=== PATIENT | male | born 1955 | race Caucasian/White ===

== ENCOUNTER → 2024-06-25 09:35 | Outpatient (REF) | payer OTHER, MEDICARE, SELFPAY | LOC: HWRCS 09:35 | PROVIDERS: ATTENDING PHYSICIAN Family Medicine | DX: M25.473 Effusion, unspecified ankle (principal); Z00.00 Encounter for general adult medical examination without abnormal findings | CPT/HCPCS: 71046; 93306 ==

== ENCOUNTER 2024-07-16 11:07 | Emergency (ER) | payer OTHER, MEDICARE, SELFPAY ==
[2024-07-16 11:12] VITALS: BP 167/87
--- NOTE | 2024-07-16 12:01 | ED.GENMED ---
History of Present Illness
<Navid Acosta Jr., PA-C - Last Filed: 07/16/24 16:33>
General
Chief Complaint: Fall
Source: patient
Exam Limitations: none
Time Seen by Provider: 07/16/24 11:23
Nursing documentation reviewed up to this point in time: agreed with
History of Present Illness
History of Present Illness:
69-year-old male presenting to the emergency department today with concerns of a trip and fall a day and a half ago hitting his head and his neck unsure if he lost consciousness. Has some mild pain to the right hip and right shoulder but has been
able to ambulate and move his shoulder well. Patient is taking Coumadin.
Past History
<Navid Acosta Jr., PA-C - Last Filed: 07/16/24 16:33>
Past History
ED Past Medical History: Cancer (Liver CA), CVA, GERD, HTN, Hypercholesterolemia, NIDDM, Other (Factor V Leiden deficiency, antiphospholipid syndrome) and Other (Stage 3 Kidney disease)
ED Past Surgical History: Orthopedic (Left knee replacement) and Other (Liver transplant, small bowel transplant)
Social History
Tobacco: Former smoker
Alcohol: None
Drug: None
Personal:
Living: with family
Employment: Disabled
Family History
Family History: Hypertension; Negative Early CAD
Review of Systems
<Navid Acosta Jr., PA-C - Last Filed: 07/16/24 16:33>
Review of Systems
Allergies reviewed?: Yes
All Other Systems: ROS reviewed and negative except as documented in HPI and ROS
Phy Exam
<JOLANTA Kapadia Jr. Last Filed: 07/16/24 16:33>
Physical Exam
Physical Exam:
GENERAL: Alert , in no apparent distress
EYE: pupils equal and reactive
NECK: Reproducible pain to the posterior neck and midline to the mid thoracic region supple, no significant adenopathy.
ENT: o/p clr, mmm.
CARDIAC: Regular rate and rhythm .
LUNGS: Clear breath sounds bilaterally, no acute respiratory distress, no wheezes/rales/rhonchi
ABDOMEN: Soft, without focal tenderness, no r/g, no cvat
NEUROLOGICAL: Alert and oriented, no focal neuro deficits
SKIN: Warm and dry, skin intact.
MUSCULOSKELETAL: No edema, well perfused.
PSYCH: Normal and appropriate interaction.
Course
<Navid Acosta Jr., JOLANTA - Last Filed: 07/16/24 16:33>
Orders/Labs/Results
Orders:
Orders
07/16/24 11:48
CT Cervical Spine W/o Iv Contr Urgent
Comment:
Reason For Exam: fall neck
CT Head W/o Iv Contrast Urgent
Comment:
Reason For Exam: fal lhit head
07/16/24 11:57
PT/INR [Prothrombin Time] Urgent
07/16/24 14:06
CT Angio Neck W/Wo Iv Contrast [CT Neck Angio W/wo Iv Contrast] Urgent
Comment:
Reason For Exam: C1 fx, fall 2 days ago
07/16/24 14:24
CBC/With Diff [Complete Blood Count/With Diff] Urgent
CMP [Comprehensive Metabolic Panel] Urgent
07/16/24 14:33
HYDROmorphone [Dilaudid] 1 mg IV NOW STA
07/16/24 15:05
0.9% Sodium Chloride 500 ml [Nss] 500 ml IV BOLUS
Abnormal Lab Results
07/16/24 07/16/24
11:57 14:24
RBC 3.88 L 10^6/uL
(4.70-6.10)
Hgb 11.9 L g/dL
(13.0-18.0)
Hct 35.6 L %
(39.0-52.0)
Absolute Monos (auto) 0.7 H 10^3/uL
(0.1-0.6)
Monocytes % 10.8 H %
(1.7-9.3)
PT 28.2 H Sec
(11.4-14.6)
Chloride 110 H mmol/L
(98-107)
BUN 26 H mg/dl
(9-20)
Creatinine 2.4 H mg/dL
(0.7-1.3)
Glucose 155 H mg/dl
(70-99)
07/16/24 14:24
07/16/24 14:24
Vital Signs
Initial and Last Documented VS:
Initial Vital Signs
Temp Pulse Resp BP Pulse Ox
98.4 F 81 18 167/87 98
07/16/24 11:12 07/16/24 11:12 07/16/24 11:12 07/16/24 11:12 07/16/24 11:12
Last Documented Vital Signs
Temp Pulse Resp BP Pulse Ox
97.5 F 76 13 138/72 98
07/16/24 14:28 07/16/24 15:01 07/16/24 15:01 07/16/24 15:01 07/16/24 14:45
<Dewey Granados MD - Last Filed: 07/16/24 15:08>
Orders/Labs/Results
Orders:
Orders
07/16/24 11:48
CT Cervical Spine W/o Iv Contr Urgent
Comment:
Reason For Exam: fall neck
CT Head W/o Iv Contrast Urgent
Comment:
Reason For Exam: fal lhit head
07/16/24 11:57
PT/INR [Prothrombin Time] Urgent
07/16/24 14:06
CT Angio Neck W/Wo Iv Contrast [CT Neck Angio W/wo Iv Contrast] Urgent
Comment:
Reason For Exam: C1 fx, fall 2 days ago
07/16/24 14:24
CBC/With Diff [Complete Blood Count/With Diff] Urgent
CMP [Comprehensive Metabolic Panel] Urgent
07/16/24 14:33
HYDROmorphone [Dilaudid] 1 mg IV NOW STA
07/16/24 15:05
0.9% Sodium Chloride 500 ml [Nss] 500 ml IV BOLUS
Abnormal Lab Results
07/16/24 07/16/24
11:57 14:24
RBC 3.88 L 10^6/uL
(4.70-6.10)
Hgb 11.9 L g/dL
(13.0-18.0)
Hct 35.6 L %
(39.0-52.0)
Absolute Monos (auto) 0.7 H 10^3/uL
(0.1-0.6)
Monocytes % 10.8 H %
(1.7-9.3)
PT 28.2 H Sec
(11.4-14.6)
Chloride 110 H mmol/L
(98-107)
BUN 26 H mg/dl
(9-20)
Creatinine 2.4 H mg/dL
(0.7-1.3)
Glucose 155 H mg/dl
(70-99)
07/16/24 14:24
07/16/24 14:24
Vital Signs
Initial and Last Documented VS:
Initial Vital Signs
Temp Pulse Resp BP Pulse Ox
98.4 F 81 18 167/87 98
07/16/24 11:12 07/16/24 11:12 07/16/24 11:12 07/16/24 11:12 07/16/24 11:12
Last Documented Vital Signs
Temp Pulse Resp BP Pulse Ox
97.5 F 76 13 138/72 98
07/16/24 14:28 07/16/24 15:01 07/16/24 15:01 07/16/24 15:01 07/16/24 14:45
<Navid Acosta Jr., PA-C - Last Filed: 07/16/24 16:33>
MDM/Problems Addressed
MDM/Problems Addressed:
69-year-old male presenting to the emergency department today with concerns of trip and fall down a half ago. Claims that he tripped over a small step 0 to break his fall to some extent with his arm but did hit his head and his neck. Ongoing
discomfort of his head and neck since. Patient is on Coumadin. On arrival here blood pressure is elevated otherwise vital signs are normal. Blood pressure did improve without specific treatment. INR in therapeutic range. CT head without
emergent finding CT spine shows fracture to C1 and dens. Case immediately discussed with [facility] trauma surgery as well as neurosurgery. They excepted transfer the patient. No neurologic symptoms while here.
<Navid Acosta Jr., PA-C - Last Filed: 07/16/24 16:33>
*Critical Care Note
Total Time (30-74mins, 75-104mins- exclusive of procedures): Not Applicable
ED Attending Note
<Navid Acosta Jr., PA-C - Last Filed: 07/16/24 16:33>
-
Portions of this chart may have been created with voice recognition software.� Occasional wrong word or��sound alike� substitutions may have occurred due to the inherent limitations of voice recognition software.
<Dewey Granados MD - Last Filed: 07/16/24 15:08>
ED Attending Note
Patient seen and examined by attending physician: Yes
ED Attending Note:
I have seen and evaluated the patient with a [id number] encounter. I have spoken to the advance practicer provider and involved in the medical history, the physical exam, medical decision making.
Evaluation and management service: agree unless noted differently below.
Results interpretation: agree unless noted differently below.
Focused HPI: 69-year-old male with history as documented presents to the ER for evaluation after fall. He says he was going into the men's room at a restaurant and tripped on a lip in the floor; he fell forward and hit his head on the wall and
hyperextended his neck. He says he has had pain in his neck as well as his right hip since. Denies any headache. Denies any nausea. Denies any other injuries. He is on Coumadin.
Physical exam: Awake and alert not in distress. Head atraumatic. Cervical collar in place. No signs of trauma to the extremities. Motor and sensory intact in all extremities. Good range of motion right hip with minimal pain.
Medical Decision Makin-year-old male presents after trip and fall with head strike. Complaining of neck pain, right hip pain. CT head negative for any acute pathology, CT cervical spine shows C1 and C2 fracture. Will send for a CTA to rule
out vascular injury with high cervical fracture. Patient is in a cervical collar cleared Case discussed with [facility] for trauma transfer. While he has had some minor right hip pain he has good range of motion, low suspicion for
fracture. Will monitor pending transport.
Discharge Plan
Departure
Patient Disposition: [facility]
Date of Disposition: 07/16/24
Time of Disposition: 14:43
Patient with high blood pressure during this ER visit?: No
Condition: Fair
Covid-19: Not Applicable
Discharge Problem:
C1 cervical fracture, Closed dens fracture
Prescriptions:
No Action
tacrolimus 0.5 MG capsule
0.5 mg PO DAILY
loperamide 2 MG capsule
8 mg PO BID
Xifaxan 550 MG tablet
550 mg PO BID
metoprolol succinate 50 MG tablet extended release 24 hr
50 mg PO DAILY
tacrolimus 0.5 MG capsule
1 mg PO HS
sodium bicarbonate 650 mg Tablet
650 mg PO BID
doxycycline monohydrate [Monodox] 100 mg capsule
100 mg PO BID
oxycodone 10 mg Tablet
10 mg PO Q4HPRN PRN (Reason: severe pain)
Patient Comments:
11/04/21 pt picked up 11/03/21 #150
atorvastatin 40 mg tablet
20 mg PO DAILY
prednisone 2.5 mg tablet
2.5 mg PO DAILY
calcitriol 0.25 mcg capsule
0.25 mcg PO DAILY
warfarin [Coumadin] 4 mg Tablet
4 mg PO DAILY
Referrals:
Prabhu Mendoza DO [Family Provider] -
Hospital Transfer
Other hospital: [facility]
I certify that the patient requires transfer: Yes
Discussed case with accepting physician: Yes
Reason for transfer: higher level of care, medical necessity, availability of service and specialties available
Interventions
Interventions:
*Risk Screen - Suicide Last Done: 07/16/24 11:17
*General Assessment Last Done: 07/16/24 11:16
*Neglect/Abuse Screening Last Done: 07/16/24 14:28
*ED- Fall Risk Assessment Last Done: 07/16/24 14:28
*ED COVID-19 Vaccine History Last Done: 07/16/24 14:28
*Nursing Disposition Last Done: 07/16/24 15:30
ED-Musculoskeletal Assessment Last Done: 07/16/24 12:03
ED- Neurological Assessment Last Done: 07/16/24 14:28
ED-Skin Assessment Last Done: 07/16/24 14:28
Discharge Date and Time
Discharge Date/Time: 07/16/24 15:37
Print Language: ALBANIAN
[2024-07-16 12:24] LABS: INR 2.65; PT 28.2 Sec (11.4-14.6)
[2024-07-16 14:17] VITALS: BP 143/75
[2024-07-16 14:21] VITALS: BMI 18.0
[2024-07-16 14:28] VITALS: BP 143/75
--- NOTE | 2024-07-16 14:31 | EDRN ---
Trent RICKETTS currently at the pts bedside, the pt was received from previous nurse Gali BEAUCHAMP from [place] [id number] Bed and was brought to ED bed #9, the pt has cervical collar in place, the pt keeps wanting to get out of bed, Trent RICKETTS at the pts bedside
discussing with the pt the pt the dangers of getting out of bed currently, pt placed on monitor, VS WNL, no s/s of distress
[2024-07-16] MEDS: DILAUDID 1 MG IV (14:35)
--- NOTE | 2024-07-16 14:37 | EDRN ---
this RN entered the pts room to medicate the pt for pain and the pt was found eating chocolates, this RN notified the provider and the pt was instructed to please not eat anything
[2024-07-16 14:39] LABS: % Basophils 0.4 % (0-2); % Eosinophils 1.3 % (0-6); % Immature Granulocytes 0.1 % (0-0.5); % Lymphocytes 29.9 % (20.5-51.1); % Monocytes 10.8 % (1.7-9.3); % Neutrophils 57.5 % (42.2-75.2); Absolute Eosinophils 0.1 10^3/uL (0-0.7); Absolute Monocytes 0.7 10^3/uL (0.1-0.6); Absolute Neutrophils 3.9 10^3/uL (1.4-6.5); Hematocrit 35.6 % (39.0-52.0); Hemoglobin 11.9 g/dL (13.0-18.0); Mean Corp Hgb Conc. 33.4 g/dL (33.0-37.0); Mean Corpuscular Hgb 30.7 pg (27.0-31.0); Mean Corpuscular Volume 91.8 fL (80.0-94.0); Mean Platelet Volume 9.9 fL (7.4-10.4); Nucleated Red Blood Cells % 0 % (-); Platelet Count 151 10^3/uL (130-400); Red Blood Cell Count 3.88 10^6/uL (4.70-6.10); Red Cell Dist. Width 14.5 % (11.5-14.5); White Blood Cell Count 6.8 10^3/uL (4.8-10.8)
[2024-07-16 14:46] LABS: ALT (SGPT) 37 U/L (0-50); AST (SGOT) 26 U/L (17-59); Albumin 3.8 g/dl (3.5-5.0); Alkaline Phosphatase 76 U/L (38-126); Blood Urea Nitrogen 26 mg/dl (9-20); Calcium 9.1 mg/dl (8.4-10.2); Carbon Dioxide 25 mmol/L (22-30); Chloride 110 mmol/L (98-107); Estimated Creatinine Clearance 21 ml/min; Glucose 155 mg/dl (70-99); Potassium 4.7 mmol/L (3.5-5.1); Sodium 141 mmol/L (135-145); Total Bilirubin 0.8 mg/dl (0.2-1.3); Total Protein 6.5 g/dl (6.3-8.2); eGFR 28.49
--- NOTE | 2024-07-16 14:53 | EDRN ---
this RN called the receiving [facility] trauma ER at [phone] and spoke to the receiving nurse Raymond BEAUCHAMP and gave verbal report
[2024-07-16 15:01] VITALS: BP 138/72
[2024-07-16] MEDS: NSS 500 IV (15:19)
--- NOTE | 2024-07-16 15:33 | EDRN ---
Acute Care Transport has arrived, this RN gave verbal report to transport staff Geraldo
== END 2024-07-16 15:37 | disposition short-term general hospital (02) ==
LOC: EMR 11:07
PROVIDERS: Physician Assistant; EMERGENCY PHYSICIAN Emergency Medicine; FAMILY PHYSICIAN Family Medicine
DX: S12.112A Nondisplaced Type II dens fracture, initial encounter for closed fracture (principal); S12.040A Displaced lateral mass fracture of first cervical vertebra, initial encounter for closed fracture; W01.198A Fall on same level from slipping, tripping and stumbling with subsequent striking against other object, initial encounter; Z87.891 Personal history of nicotine dependence
CPT/HCPCS: 99285; 96374; 70450; 70498; 72125; 80053; 85025; 85610; Q9967